=== PATIENT | female | born 1950 | race Caucasian/White ===

== ENCOUNTER → 2017-06-21 | Outpatient (CLI) | payer MEDICARE, MEDICAID ==
[2013-08-31 12:48] VITALS: BMI 24.3
[~2017-06-21] MED LIST: ACE325 PO; ACET500T68 PO; ALE70 PO; ARIP10TA4 PO; BACOUD TP; BUPR-149 PO; CALC-649 PO; CALC-707 PO; CALC625T57 PO; CETY454C2 TP; CHOL10005 PO; COD28PAS TP; COMPLETE VITAMIN PO; CYA1000 PO; DIA5 PO; DIV500 PO; DIVA500T97 PO; EYEL1MED TP; FER325 PO; FLU10 PO; FLU20 PO; FLUT16SP20 NS; FUR20 PO; GLUC-198 PO; GUAI-244 PO; HYDR12.561 PO; HYDR453.8 TP; LEVO150T72 PO; LEVO50TA80 PO; LIT300 PO; LITH300T18 PO; LITHOBID PO; LOPE-109 PO; LOR10 PO; MENT118G TOP; MET70GEL TOP; METR45CR10 TP; METR45CR9 TP; MICROZIDE PO; MOM PO; MULT1CAP59 PO; MYCOLOG TOP; NYST15PO4 TP; NYST60PO9 TP; OMEP-218 PO; OXY5 PO; POLPT OP; RIS35 PO; SIMV-44 PO; SODI30SP6 NS; SPIR50TA31 PO; TRA50 PO; TRAZ50 PO; TRIA15CR40 TP; VIT1CAPS39 PO; [UNRECOGNIZED DRUG - CODE] PO; [UNRECOGNIZED DRUG - CODE] PO; [UNRECOGNIZED DRUG - CODE] TP; [UNRECOGNIZED DRUG - OTHER] PO
--- NOTE | 2017-06-21 12:58 | RADIOLOGY IMAGING REPORT ---
FACILITY: [facility] - [place] PATIENT NAME: Gloria Molina : 1950 MR: [id number] V: [id number] EXAM DATE: ORDERING PHYSICIAN: JOHN PAUL WALLACE TECHNOLOGIST: Location: [facility] - [place] Patient: Gloria Molina : 1950 Visit/Account:[id number] Date of Sevice: 06/21/2017 DEXA Scan Clinical history: Seen osteoporosis. Comparison: DEXA scan from 06/17/2015. LUMBAR SPINE: The bone mineral density (BMD) measured from L1-L4 correlates with a Z-score of 2 and a T-score of 0. 2 which is Normal as defined by the World Health Organization. The corresponding risk of fracture in the lumbar spine is Not increased compared with a young adult reference population. This value has increased by 6.5 % since the prior study. More than 5% change is considered significant. HIP: Bone mineral density (BMD) measured in the LEFT total hip region correlates with a Z-score -0.2 and a T-score of -1.8 which is osteopenia as defined by the World Health Organization. The corresponding risk of fracture in the hip is 3-4 times increased compared to a young adult reference population. Th is value has increase by four % since the prior study. More than 5% change is considered significant . T score left femoral neck -1.9 Bone mineral density (BMD) measured in the Femoral Neck region measures 0.768 g/cm?. IMPRESSION: 1. Lumbar spine: Normal. There has been 6.5% increase in the bone mineral density since the previou s exam. 2. Left Total Hip: Osteopenia. There has been 4% increase in the bone mineral density since the pre vious exam. 3. Femoral Neck: Bone Mineral Density is 0.768 g/cm? The next DEXA scan of this patient should include the following sites: L1-L4 and the left hip. FRAX? WHO Fracture Risk Assessment Tool link: <http://www.shef.ac.uk/FRAX/tool.jsp?[email or web address]> PLEASE NOTE: 1) The World Health Organization defines low BMD as follows: T-score Normal > -1 Osteopenia < -1 and > -2.5 Osteoporosis < -2.5 without fractures Established osteoporosis < -2.5 with fractures 2) In general, you may wish to consider: Diagnosis Treatment Follow-up DEXA Normal BMD Prevention 2-3 years Osteopenia Prevention/therapy 1-2 years Osteoporosis Therapy Yearly 3) Fracture risk estimated from the T-score is more accurate for vertebral fractures (often spontane ous) than for hip fractures. Report Dictated By: Haylee Ledesma MD at 06/21/2017 12:52 PM Report E-Signed By: Haylee Ledesma MD at 06/21/2017 12:54 PM WSN:[email or web address]
== END ==
LOC: RAD 01:25
PROVIDERS: ATTEND Nurse Practitioner Family
DX: Z13.820 Encounter for screening for osteoporosis (principal); M85.88 Other specified disorders of bone density and structure, other site
CPT/HCPCS: 77080

== ENCOUNTER → 2017-07-05 | Outpatient (CLI) | payer MEDICARE, MEDICAID ==
[2013-08-31 12:48] VITALS: BMI 24.3
[~2017-07-05] MED LIST changes: +DENOSUMAB 60 MG/1 ML SYR SUBQ ONE
[2017-07-05 13:37] VITALS: BP 117/83
== END ==
LOC: SPU 08:17
PROVIDERS: ATTEND Nurse Practitioner Family
DX: M81.0 Age-related osteoporosis without current pathological fracture (principal); E55.9 Vitamin D deficiency, unspecified; E83.51 Hypocalcemia
CPT/HCPCS: 96372; J0897

== ENCOUNTER 2018-01-04 00:37 | Day surgery (SDC) | payer MEDICARE, MEDICAID ==
[2013-08-31 12:48] VITALS: Ht 154.9 cm; Wt 54.9 kg
[~2018-01-04] VITALS: Ht 154.9 cm; Wt 54.9 kg
[2018-01-04] VITALS (7 sets, daily range): BP systolic 78–92; BP diastolic 42–62
[~2018-01-04 00:37] MED LIST changes: +ABILIF5PT PO; -DENOSUMAB 60 MG/1 ML SYR SUBQ ONE; +GOLYTE PO
[2018-01-04] MEDS ORDERED: NORMOSOL R SOLN(*) 1000 ML BAG 1,000 ML IV PRN (06:30)
[2018-01-04] MEDS ORDERED: LIDOCAINE/SOD BICARB 8.4% SYR ID ONE (06:30)
[2018-01-04] MEDS ORDERED: PROPOFOL EMUL(*) 10MG/ML 20 ML 60 ML ONE (07:12)
[2018-01-04] MEDS ORDERED: LIDOCAINE MPF 1% 5 ML VIAL ONE (07:12)
--- NOTE | 2018-01-04 08:05 | Short(Outpt) Discharge Summary ---
Discharge Summary Reason for Hosp/Final Diag: (1) Colon cancer screening Status: Chronic Hospital Course & Plan: Colonoscopy completed without problems, normal. Departure Discharge to: Other Facility Discharge Instructions Home Meds Active Scripts Peg/Electrolytes (GOLYTELY SOLUTION) 4,000 Ml Soln, 1 GAL PO ONCE, #1 GAL 0 Refills Prov:TRENT FINNEY MD 11/21/17 Metronidazole (METROCREAM) 45 Gm Cream..g., 1 HERI TP BID for 30 Days, #1 TUBE 2 Refills Prov:SENDY GUIDO 04/07/17 Reported Medications Aripiprazole (ABILIFY) 5 Mg Tablet, 5 MG PO QDAY, TAB 12/22/17 Cholecalciferol (Vitamin D3) (VITAMIN D3) 1,000 Unit Tablet, 2000 UNIT PO QAM, TAB 06/28/16 Eyelid Cleanser Combination #5 (OCUSOFT LID SCRUB) 1 Each Med..pad, 1 EACH TP QPM 06/28/16 Cyanocobalamin (Vitamin B-12) (VITAMIN B-12) 1,000 Mcg Tablet, 1000 MCG PO QAM 06/28/16 Bupropion Hcl (BUPROPION HCL) 100 Mg Tablet, 150 MG PO QAM, TAB 06/28/16 Nystatin (NYSTOP) 60 Gm Powder, 1 HERI TP PRN 06/28/16 Cod Liver Oil/Zinc Oxide (DESITIN DIAPER RASH 40% PASTE) 28 Gm Paste..g., 1 HERI TP PRN 06/28/16 Triamcinolone Acetonide 0.1% Cr 15 Gm Tube (TRIAMCINOLONE ACETONIDE 0.1% CREAM) 15 Gm Cream..g., 1 HERI TP PRN, TUBE 06/28/16 Nystatin 100,000 Unit/Gm Top Powder (NYSTATIN 100,000 UNIT/GM TOP POWDER) 15 Gm Powder, 15 GM TP PRN, TUBE 06/28/16 Vit C/Meredith Ac/Lut/Copper/Znox (PRESERVISION LUTEIN SOFTGEL) 1 Each Capsule, 1 EACH PO BID, CAPSULE 06/28/16 Multivitamin (MULTIVITAMINS) 1 Each Capsule, 1 EACH PO QDAY, CAPSULE 06/28/16 Calcium Carbonate/Vitamin D3 (CALCIUM 600 + VIT D 200 TABLET) 1 Each Tablet, 1 EACH PO BID 06/28/16 Sodium Chloride (SALINE NASAL SPRAY) 30 Ml [place], 1 HERI NS BID, SPRAY 06/28/16 Skin Cleanser (PERIFRESH) 3,840 Ml Cleanser, 1 HERI TP BID 06/28/16 Metronidazole (METRONIDAZOLE) 45 Gm Cream..g., 1 HERI TP BID 06/28/16 Bacitracin/Polymyxin (BACITRACIN-POLYMYXIN OINTMENT) 0.9 Gm Oint, 1 HERI OP QHS 06/28/16 Bacitracin (BACITRACIN ZINC) 0.9 Gm Oint, 1 HERI TP PRN 06/28/16 Hydrocortisone 2.5% Oint (HYDROCORTISONE 2.5% OINT) 453.6 Gm Oint...g., 1 HERI TP PRN, TUBE 06/28/16 Menthol (BIOFREEZE) 118 Ml Gel..ml., 1 HERI TOP PRN 06/28/16 Guaifenesin (ROBAFEN) 100 Mg/5 Ml Liquid, 20 ML PO PRN 06/28/16 Calcium Carbonate (ANTACID) 300 Mg Tab.chew, 1000 MG PO PRN, TAB.CHEW 06/28/16 Loperamide Hcl (ANTI-DIARRHEAL) 2 Mg Tablet, 4 MG PO PRN 06/28/16 Acetaminophen (TYLENOL EXTRA STRENGTH) 500 Mg Tablet, 2 TAB PO PRN, TAB 06/28/16 Magnesium Hydroxide (MILK OF MAGNESIA) 400 Mg/5 Ml Oral.susp, 30 ML PO PRN, BOTTLE 06/28/16 Cetyl Alc/Stearyl Alc/Pg/Sls (CETAPHIL CREAM) 454 Gm Cream..g., 454 GM TP PRN 06/28/16 Hydrochlorothiazide (HYDROCHLOROTHIAZIDE) 12.5 Mg Tablet, 1 TAB PO QDAY TAKE ONE TABLET BY MOUTH EVERY DAY 07/24/13 Fluticasone Propionate (FLONASE) 16 Gm [place].susp, 2 SPRAYS NS QDAY 07/24/13 Simvastatin (Zocor) 40 Mg Tablet, 40 MG PO QHS, 0 Refills 06/01/10 Levothyroxine Sodium (Synthroid) 50 Mcg Tablet, 50 MCG PO QDAY, 0 Refills 06/01/10 Omeprazole Magnesium (Prilosec Otc) 20 Mg Tablet.dr, 20 MG PO QDAY, 0 Refills 06/01/10 Glucosa [place] 2KCL/Chondroitin Monroe (Glucosamine & Chondroitin Cap) 1 Cap Capsule, 1 CAP PO BID, 0 Refills 06/01/10 Loratadine (Claritin) 10 Mg Tab, 10 MG PO QDAY, 0 Refills 06/01/10 Diazepam (Valium) 5 Mg Tab, 5 MG PO PRN, 0 Refills 06/01/10 Diet: Regular Activity: As Tolerated Special Instructions: Gloria's colonoscopy was completed without problems and her prep was excellent (Good Job!!). I didn't find any abnormalities, no polyps, cancers, or other problems. I recommend that Gloria have another colonoscopy in 10 years, health depending. She may resume all of her regular medications and diet. TRENT FINNEY MD Jan 04, 2018 08:05
== END 2018-01-04 08:40 | disposition home or self-care (01) ==
LOC: OR 00:37
PROVIDERS: ATTEND Surgery
DX: Z12.11 Encounter for screening for malignant neoplasm of colon (principal); E03.9 Hypothyroidism, unspecified; K21.9 Gastro-esophageal reflux disease without esophagitis; E78.5 Hyperlipidemia, unspecified; H35.00 Unspecified background retinopathy
CPT/HCPCS: 00812; G0121; J2001; J2704

== ENCOUNTER → 2018-01-10 | Outpatient (CLI) | payer MEDICARE, MEDICAID ==
[2013-08-31 12:48] VITALS: BMI 24.3
[~2018-01-10] MED LIST changes: +DENOSUMAB 60 MG/1 ML SYR SUBQ ONE
[2018-01-10 13:29] VITALS: BP 111/84
== END ==
LOC: SPU 08:36
PROVIDERS: ATTEND Family Medicine
DX: M81.0 Age-related osteoporosis without current pathological fracture (principal)
CPT/HCPCS: 96372; J0897

== ENCOUNTER 2018-02-19 10:58 | Emergency (ER) | payer MEDICARE, MEDICAID ==
[2013-08-31 12:48] VITALS: Wt 56.7 kg
[~2018-02-19 10:58] MED LIST changes: -DENOSUMAB 60 MG/1 ML SYR SUBQ ONE
--- NOTE | 2018-02-19 11:01 | ER Report ---
History and Physical Time Seen By MD: 11:00 HPI/ROS CHIEF COMPLAINT: Back pain, fatigue HISTORY OF PRESENT ILLNESS: Patient is a 67-year-old female here with complaints of back pain since yesterday. Patient is accompanied by a special education para professional who reports that the patient has been sleeping a lot lately and is seemingly fatigued. Patient denies these accounts. She reportedly was complaining of lumbar back pain starting yesterday which seemed to worsen overnight. She did have a history of a fall back in January at which time she had extensive imaging completed which showed no acute fractures or obvious deformities. Denies recent trauma. Patient does have a history of MR. Patient was able to walk in to treatment room without issue and is neurovascularly intact in the lower extremities. Denies bowel or bladder incontinence. REVIEW OF SYSTEMS: Constitutional: No fever, no chills. Eyes: No discharge. ENT: No sore throat. Cardiovascular: No chest pain, no palpitations. Respiratory: No cough, no shortness of breath. Gastrointestinal: No abdominal pain, no vomiting. Genitourinary: No hematuria. Musculoskeletal: Lumbar back pain. Skin: No rashes. Neurological: No weakness of the lower extremities, reflexes intact Allergies: Coded Allergies: erythromycin base (Verified Allergy, Unknown, 02/19/18) ethyl alcohol (Verified Allergy, Unknown, 02/19/18) grass pollen (Verified Allergy, Unknown, 02/19/18) grass pollen-sweet vernal, standardized (Verified Allergy, Unknown, 02/19/18) horse dander (Verified Allergy, Unknown, 02/19/18) trovafloxacin (Verified Allergy, Unknown, 02/19/18) weed pollen (Verified Allergy, Unknown, 02/19/18) divalproex sodium (Verified Adverse Reaction, Intermediate, 02/19/18) Uncoded Allergies: TROVAM (Allergy, Unknown, 07/26/09) TUNA OIL (Allergy, Unknown, 07/24/13) TB tests (Adverse Reaction, Unknown, 11/21/17) Home Meds Active Scripts Peg/Electrolytes (GOLYTELY SOLUTION) 4,000 Ml Soln, 1 GAL PO ONCE, #1 GAL 0 Refills Prov:TRENT FINNEY MD 11/21/17 Metronidazole (METROCREAM) 45 Gm Cream..g., 1 HERI TP BID for 30 Days, #1 TUBE 2 Refills Prov:SENDY GUIDO NPC 04/07/17 Reported Medications Aripiprazole (ABILIFY) 5 Mg Tablet, 5 MG PO QDAY, TAB 12/22/17 Cholecalciferol (Vitamin D3) (VITAMIN D3) 1,000 Unit Tablet, 2000 UNIT PO QAM, TAB 06/28/16 Eyelid Cleanser Combination #5 (OCUSOFT LID SCRUB) 1 Each Med..pad, 1 EACH TP QPM 06/28/16 Cyanocobalamin (Vitamin B-12) (VITAMIN B-12) 1,000 Mcg Tablet, 1000 MCG PO QAM 06/28/16 Bupropion Hcl (BUPROPION HCL) 100 Mg Tablet, 150 MG PO QAM, TAB 06/28/16 Nystatin (NYSTOP) 60 Gm Powder, 1 HERI TP PRN 06/28/16 Cod Liver Oil/Zinc Oxide (DESITIN DIAPER RASH 40% PASTE) 28 Gm Paste..g., 1 HERI TP PRN 06/28/16 Triamcinolone Acetonide 0.1% Cr 15 Gm Tube (TRIAMCINOLONE ACETONIDE 0.1% CREAM) 15 Gm Cream..g., 1 HERI TP PRN, TUBE 06/28/16 Nystatin 100,000 Unit/Gm Top Powder (NYSTATIN 100,000 UNIT/GM TOP POWDER) 15 Gm Powder, 15 GM TP PRN, TUBE 06/28/16 Vit C/Meredith Ac/Lut/Copper/Znox (PRESERVISION LUTEIN SOFTGEL) 1 Each Capsule, 1 EACH PO BID, CAPSULE 06/28/16 Multivitamin (MULTIVITAMINS) 1 Each Capsule, 1 EACH PO QDAY, CAPSULE 06/28/16 Calcium Carbonate/Vitamin D3 (CALCIUM 600 + VIT D 200 TABLET) 1 Each Tablet, 1 EACH PO BID 06/28/16 Sodium Chloride (SALINE NASAL SPRAY) 30 Ml [place], 1 HERI NS BID, SPRAY 06/28/16 Skin Cleanser (PERIFRESH) 3,840 Ml Cleanser, 1 HERI TP BID 06/28/16 Metronidazole (METRONIDAZOLE) 45 Gm Cream..g., 1 HERI TP BID 06/28/16 Bacitracin/Polymyxin (BACITRACIN-POLYMYXIN OINTMENT) 0.9 Gm Oint, 1 HERI OP QHS 06/28/16 Bacitracin (BACITRACIN ZINC) 0.9 Gm Oint, 1 HERI TP PRN 06/28/16 Hydrocortisone 2.5% Oint (HYDROCORTISONE 2.5% OINT) 453.6 Gm Oint...g., 1 HERI TP PRN, TUBE 06/28/16 Menthol (BIOFREEZE) 118 Ml Gel..ml., 1 HERI TOP PRN 06/28/16 Guaifenesin (ROBAFEN) 100 Mg/5 Ml Liquid, 20 ML PO PRN 06/28/16 Calcium Carbonate (ANTACID) 300 Mg Tab.chew, 1000 MG PO PRN, TAB.CHEW 06/28/16 Loperamide Hcl (ANTI-DIARRHEAL) 2 Mg Tablet, 4 MG PO PRN 06/28/16 Acetaminophen (TYLENOL EXTRA STRENGTH) 500 Mg Tablet, 2 TAB PO PRN, TAB 06/28/16 Magnesium Hydroxide (MILK OF MAGNESIA) 400 Mg/5 Ml Oral.susp, 30 ML PO PRN, BOTTLE 06/28/16 Cetyl Alc/Stearyl Alc/Pg/Sls (CETAPHIL CREAM) 454 Gm Cream..g., 454 GM TP PRN 06/28/16 Hydrochlorothiazide (HYDROCHLOROTHIAZIDE) 12.5 Mg Tablet, 1 TAB PO QDAY TAKE ONE TABLET BY MOUTH EVERY DAY 07/24/13 Fluticasone Propionate (FLONASE) 16 Gm [place].susp, 2 SPRAYS NS QDAY 07/24/13 Simvastatin (Zocor) 40 Mg Tablet, 40 MG PO QHS, 0 Refills 06/01/10 Levothyroxine Sodium (Synthroid) 50 Mcg Tablet, 50 MCG PO QDAY, 0 Refills 06/01/10 Omeprazole Magnesium (Prilosec Otc) 20 Mg Tablet.dr, 20 MG PO QDAY, 0 Refills 06/01/10 Glucosa [place] 2KCL/Chondroitin [place] (Glucosamine & Chondroitin Cap) 1 Cap Capsule, 1 CAP PO BID, 0 Refills 06/01/10 Loratadine (Claritin) 10 Mg Tab, 10 MG PO QDAY, 0 Refills 06/01/10 Diazepam (Valium) 5 Mg Tab, 5 MG PO PRN, 0 Refills 06/01/10 Hx Smoking: No Smoking Status: Never Smoker Exposure to Second Hand Smoke?: No Hx Substance Use Disorder: No Hx Alcohol Use: No Constitutional Vital Sign - Last 24 Hours 02/19/18 11:09 Temp 97.6 Pulse 87 Resp 14 B/P (MAP) 115/75 Pulse Ox 96 O2 Delivery Room Air Physical Exam General Appearance: The patient is alert, has no immediate need for airway protection and no signs of toxicity. No acute distress Eyes: Pupils equal and round no pallor or injection. ENT, Mouth: Mucous membranes are moist. Respiratory: There are no retractions, lungs are clear to auscultation. Cardiovascular: Regular rate and rhythm. [ ] Gastrointestinal: Abdomen is soft and non tender, no masses, bowel sounds normal. Neurological: Neurovascular exam intact in the lower extremities, reflexes intact, sensation intact, weightbearing Skin: Warm and dry, no rashes. Musculoskeletal: Neck is supple non tender. No midline back pain illicited on palpation Extremities are nontender, nonswollen and have full range of motion. DIFFERENTIAL DIAGNOSIS: After history and physical exam differential diagnosis was considered for back pain including but not limited to muscular pain, herniated disc, spine fracture, intra-abdominal causes and urinary tract infection. Medical Decision Making Data Points Result Diagram: 02/19/18 1152 02/19/18 1152 Laboratory Hematology Test 02/19/18 11:20 02/19/18 11:52 Urine Color Yellow Urine Clarity Clear Urine pH 6.0 pH (4.8-9.5) Urine Specific [place] 1.014 Urine Protein Negative mg/dL (NEGATIVE) Urine Glucose (UA) Negative mg/dL (NEGATIVE) Urine Ketones Trace mg/dL (NEGATIVE) Urine Blood Negative (NEGATIVE) Urine Nitrite Negative (NEGATIVE) Urine Bilirubin Negative (NEGATIVE) Urine Urobilinogen Negative mg/dL (0.2-1.9) Urine Leukocyte Esterase Negative (NEGATIVE) Urine RBC None /HPF (0-2/HPF) Urine WBC <1 /HPF (0-5/HPF) Urine Squamous Epithelial Cells None /LPF (NONE-FEW) Urine Bacteria Negative /HPF (NONE-FEW) Urine Mucus None /HPF (NONE-FEW) Red Blood Count 4.65 M/uL (4.17-5.56) Mean Corpuscular Volume 89.8 fL (80.0-96.0) Mean Corpuscular Hemoglobin 30.3 pg (26.0-33.0) Mean Corpuscular Hemoglobin Concent 33.8 g/dL (32.0-36.0) Red Cell Distribution Width 13.4 % (11.5-14.5) Mean Platelet Volume 8.3 fL (7.2-11.1) Neutrophils (%) (Auto) 75.0 % (39.4-72.5) Lymphocytes (%) (Auto) 15.9 % (17.6-49.6) Monocytes (%) (Auto) 7.5 % (4.1-12.4) Eosinophils (%) (Auto) 0.6 % (0.4-6.7) Basophils (%) (Auto) 1.0 % (0.3-1.4) Nucleated RBC Relative Count (auto) 0.0 /100WBC Neutrophils # (Auto) 4.3 K/uL (2.0-7.4) Lymphocytes # (Auto) 0.9 K/uL (1.3-3.6) Monocytes # (Auto) 0.4 K/uL (0.3-1.0) Eosinophils # (Auto) 0.0 K/uL (0.0-0.5) Basophils # (Auto) 0.1 K/uL (0.0-0.1) Nucleated RBC Absolute Count (auto) 0.00 K/uL Sodium Level 137 mmol/L (137-145) Potassium Level 4.2 mmol/L (3.5-5.0) Chloride Level 103 mmol/L (98-107) Carbon Dioxide Level 25 mmol/L (22-31) Blood Urea Nitrogen 22 mg/dl (7-18) Creatinine 0.70 mg/dl (0.52-1.04) Glomerular Filtration Rate Calc > 60.0 Random Glucose 97 mg/dl (75-110) Calcium Level 9.3 mg/dl (8.4-10.2) Total Bilirubin 0.4 mg/dl (0.2-1.3) Aspartate Amino Transf (AST/SGOT) 37 U/L (0-35) Alanine Aminotransferase (ALT/SGPT) 65 U/L (0-56) Alkaline Phosphatase 58 U/L (0-126) Total Protein 6.6 g/dl (6.3-8.2) Albumin 4.0 g/dl (3.5-5.0) Lipase 112 U/L (23-300) Chemistry Test 02/19/18 11:20 02/19/18 11:52 Urine Color Yellow Urine Clarity Clear Urine pH 6.0 pH (4.8-9.5) Urine Specific [place] 1.014 Urine Protein Negative mg/dL (NEGATIVE) Urine Glucose (UA) Negative mg/dL (NEGATIVE) Urine Ketones Trace mg/dL (NEGATIVE) Urine Blood Negative (NEGATIVE) Urine Nitrite Negative (NEGATIVE) Urine Bilirubin Negative (NEGATIVE) Urine Urobilinogen Negative mg/dL (0.2-1.9) Urine Leukocyte Esterase Negative (NEGATIVE) Urine RBC None /HPF (0-2/HPF) Urine WBC <1 /HPF (0-5/HPF) Urine Squamous Epithelial Cells None /LPF (NONE-FEW) Urine Bacteria Negative /HPF (NONE-FEW) Urine Mucus None /HPF (NONE-FEW) White Blood Count 5.7 k/uL (4.5-11.0) Red Blood Count 4.65 M/uL (4.17-5.56) Hemoglobin 14.1 g/dL (12.0-16.0) Hematocrit 41.7 % (34.0-47.0) Mean Corpuscular Volume 89.8 fL (80.0-96.0) Mean Corpuscular Hemoglobin 30.3 pg (26.0-33.0) Mean Corpuscular Hemoglobin Concent 33.8 g/dL (32.0-36.0) Red Cell Distribution Width 13.4 % (11.5-14.5) Platelet Count 179 K/uL (150-450) Mean Platelet Volume 8.3 fL (7.2-11.1) Neutrophils (%) (Auto) 75.0 % (39.4-72.5) Lymphocytes (%) (Auto) 15.9 % (17.6-49.6) Monocytes (%) (Auto) 7.5 % (4.1-12.4) Eosinophils (%) (Auto) 0.6 % (0.4-6.7) Basophils (%) (Auto) 1.0 % (0.3-1.4) Nucleated RBC Relative Count (auto) 0.0 /100WBC Neutrophils # (Auto) 4.3 K/uL (2.0-7.4) Lymphocytes # (Auto) 0.9 K/uL (1.3-3.6) Monocytes # (Auto) 0.4 K/uL (0.3-1.0) Eosinophils # (Auto) 0.0 K/uL (0.0-0.5) Basophils # (Auto) 0.1 K/uL (0.0-0.1) Nucleated RBC Absolute Count (auto) 0.00 K/uL Glomerular Filtration Rate Calc > 60.0 Calcium Level 9.3 mg/dl (8.4-10.2) Total Bilirubin 0.4 mg/dl (0.2-1.3) Aspartate Amino Transf (AST/SGOT) 37 U/L (0-35) Alanine Aminotransferase (ALT/SGPT) 65 U/L (0-56) Alkaline Phosphatase 58 U/L (0-126) Total Protein 6.6 g/dl (6.3-8.2) Albumin 4.0 g/dl (3.5-5.0) Lipase 112 U/L (23-300) Urinalysis Test 02/19/18 11:20 Urine Color Yellow Urine Clarity Clear Urine pH 6.0 pH (4.8-9.5) Urine Specific [place] 1.014 Urine Protein Negative mg/dL (NEGATIVE) Urine Glucose (UA) Negative mg/dL (NEGATIVE) Urine Ketones Trace mg/dL (NEGATIVE) Urine Blood Negative (NEGATIVE) Urine Nitrite Negative (NEGATIVE) Urine Bilirubin Negative (NEGATIVE) Urine Urobilinogen Negative mg/dL (0.2-1.9) Urine Leukocyte Esterase Negative (NEGATIVE) Urine RBC None /HPF (0-2/HPF) Urine WBC <1 /HPF (0-5/HPF) Urine Squamous Epithelial Cells None /LPF (NONE-FEW) Urine Bacteria Negative /HPF (NONE-FEW) Urine Mucus None /HPF (NONE-FEW) EKG/Imaging Imaging Location: Patient: Gloria Molina : 1950 Visit/Account:[id number] Date of Sevice: 02/19/2018 EXAMINATION: Lumbar spine radiographs 5 views HISTORY: Back pain. COMPARISON: Lumbar spine radiographs from 07/26/2009. FINDINGS: AP, lateral and bilateral oblique views of the lumbar spine and a lateral view of the lumbosacral junction are obtained. Bones: There are 6 nonrib-bearing lumbar type vertebral bodies. Vertebral body heights are maintained. Right hip arthroplasty partly visualized. Disc spaces: Mild disc space narrowing and endplate sclerosis at a few levels. Posterior elements: Negative. Alignment: Mild right lateral curvature of the lumbar spine without focal listhesis. Hardware: None. Soft tissues: Negative. IMPRESSION: 1. 6 nonrib-bearing lumbar type vertebra. 2. No evidence of acute fracture of the lumbar spine. 3. Mild degenerative disc disease of the lumbar spine. 4. Mild right lateral curvature of the lumbar spine could be positional, related to muscle spasm or scoliosis. ED Course/Re-evaluation ED Course Patient is a 67-year-old female with a history of MR here with complaints of back pain and fatigue. Patient denies fevers, chills, chest pain, shortness of breath, abdominal pain. Patient is able to bear weight and ambulate into the treatment room, she is neurovascularly intact in the lower extremities with intact reflexes. Denies bowel or bladder incontinence. Patient's special education para professional reports that she has been increasingly more fatigued lately. She did have a fall back in January and CT imaging of the head and neck, chest abdomen pelvis showed no acute fractures or injuries. X-ray imaging of the lumbar area was obtained today to rule out bony deformity. Patient was given Toradol, labs are checked due to patient's history of fatigue and concern for possible infection such as UTI. X-ray imaging showed no acute fractures. Labs were unremarkable, urinalysis was noninfectious. Recommend naproxen 500 mg twice a day for the next couple days to treat possible back pain. Patient will be fitted for a walker due to worsening vision and fall precautions. Return precautions given. Close PCP follow-up recommended. Decision to Disposition Date: Feb 19, 2018 Decision to Disposition Time: 12:32 Depart Departure Latest Vital Signs Vital Signs Date Time Temp Pulse Resp B/P (MAP) Pulse Ox O2 Delivery O2 Flow Rate FiO2 02/19/18 11:09 97.6 87 14 115/75 96 Room Air Impression: Primary Impression: Back pain Additional Impression: Fatigue Condition: Improved Disposition: HOME OR SELF-CARE Patient Instructions: Acute Low Back Pain (ED) Additional Instructions: Please drink plenty of water. You may take 500 mg of naproxen twice daily for the next couple days for treatment of back pain symptoms. Please follow up closely with her family doctor in the next couple days. Please return promptly if you develop worsening pain, bowel or bladder incontinence, fevers, weakness in the legs, loss of sensation. Please consider using a walker for safety and fall precaution. Problem Qualifiers TU BERRIOS DO Feb 19, 2018 11:01
[2018-02-19 11:09] VITALS: BP 115/75
[2018-02-19] MEDS ORDERED: KETOROLAC 30 MG/ML VIAL IM ONE (11:10)
[2018-02-19 12:03] LABS: PLATELET COUNT, AUTOMATED 179 K/uL (150-450)
--- NOTE | 2018-02-19 12:17 | RADIOLOGY IMAGING REPORT ---
FACILITY: [facility] PATIENT NAME: Gloria Molina : 1950 MR: [id number] V: [id number] EXAM DATE: ORDERING PHYSICIAN: TU BERRIOS TECHNOLOGIST: Location: [facility] - [place] Patient: Gloria Molina : 1950 Visit/Account:[id number] Date of Sevice: 02/19/2018 EXAMINATION: Lumbar spine radiographs 5 views HISTORY: Back pain. COMPARISON: Lumbar spine radiographs from 07/26/2009. FINDINGS: AP, lateral and bilateral oblique views of the lumbar spine and a lateral view of the lumbo sacral junction are obtained. Bones: There are 6 nonrib-bearing lumbar type vertebral bodies. Vertebral body heights are maintaine d. Right hip arthroplasty partly visualized. Disc spaces: Mild disc space narrowing and endplate sclerosis at a few levels. Posterior elements: Negative. Alignment: Mild right lateral curvature of the lumbar spine without focal listhesis. Hardware: None. Soft tissues: Negative. IMPRESSION: 1. 6 nonrib-bearing lumbar type vertebra. 2. No evidence of acute fracture of the lumbar spine. 3. Mild degenerative disc disease of the lumbar spine. 4. Mild right lateral curvature of the lumbar spine could be positional, related to muscle spasm or s coliosis. Report Dictated By: Lubna Reinoso MD at 02/19/2018 12:11 PM Report E-Signed By: Lubna Reinoso MD at 02/19/2018 12:14 PM WSN:[id number]
== END 2018-02-19 13:25 | disposition home or self-care (01) ==
LOC: ER 11:34
DX: M54.5 Low back pain (principal); R53.83 Other fatigue
CPT/HCPCS: 36415; 72120; 81001; 83690; 85025; 96372; 99283; A4353; J1885; 82040; 82247; 82310; 82374; 82435; 82565; 82947; 84075; 84132; 84155; 84295; 84450; 84460; 84520

== ENCOUNTER → 2018-03-09 | Outpatient (CLI) | payer MEDICARE, MEDICAID ==
[2013-08-31 12:48] VITALS: BMI 24.3
--- NOTE | 2018-03-10 08:48 | RADIOLOGY IMAGING REPORT ---
FACILITY: [facility] PATIENT NAME: AUBREY BASILIO : [id number] MR: [id number] V: [id number] EXAM DATE: ORDERING PHYSICIAN: JOHN PAUL WALLACE TECHNOLOGIST: Laila Toribio PROCEDURE:BILATERAL DIGITAL SCREENING MAMMOGRAM WITH CAD ASSISTED INTERPRETATION COMPARISON:Prior mammograms 01/10/17, 01/09/16, 12/25/15, 12/23/14, 12/07/13, 12/05/12. INDICATIONS:SCREENING FINDINGS: The breasts are almost entirely fatty. The parenchymal pattern has remained stable allowing for difference in mammographic technique & patient positioning. DIAGNOSTIC CATEGORY 1--NEGATIVE. RECOMMENDATIONS: ROUTINE MAMMOGRAM AND CLINICAL EVALUATION. IMPRESSION: BIRADS 1: Negative. No significant abnormality is seen. Dictated by: Haylee Ledesma M.D. on 03/09/2018 at 16:38 Transcribed by: ANNAMRIE on 03/10/2018 at 8:22 Approved by: Haylee Ledesma M.D. on 03/10/2018 at 8:47 [facility]
== END ==
LOC: MAMO 03-06 01:48
PROVIDERS: ATTEND Nurse Practitioner Family
DX: Z12.31 Encounter for screening mammogram for malignant neoplasm of breast (principal)
CPT/HCPCS: 77063; 77067

== ENCOUNTER → 2018-07-17 | Outpatient (CLI) | payer MEDICARE, MEDICAID ==
[2013-08-31 12:48] VITALS: BMI 24.3
[~2018-07-17] MED LIST changes: +DENOSUMAB 60 MG/1 ML SYR SUBQ ONE
[2018-07-17 11:30] VITALS: BP 117/84
== END ==
LOC: SPU 11:10
PROVIDERS: ATTEND Nurse Practitioner Family
DX: M81.0 Age-related osteoporosis without current pathological fracture (principal)
CPT/HCPCS: 96372; J0897